=== PATIENT | female | born 1980 | race American Indian/Alaskan Native ===

== ENCOUNTER 2017-07-11 21:48 | Emergency (ER) | payer SELFPAY ==
[2017-07-11] MEDS ORDERED: Sodium Chloride 0.9% 1,000 ML IV ONE (22:06)
--- NOTE | 2017-07-11 22:06 | C.PDOC ---
History Of Present Illness Patient presents to ED with complaints of right flank pain associated with blood in urine that began yesterday. Patient describes pain as sharp and stabbing. She also states the pain got worse and radiates to the groin. Patient has Hx of kidney stones. Denies fever, chills, or any other physical complaints. Time Seen by Provider: 07/11/17 22:05 Chief Complaint (Nursing): Female Genitourinary History Per: Patient History/Exam Limitations: no limitations Onset/Duration Of Symptoms: Days (1) Current Symptoms Are (Timing): Still Present Severity: Moderate Pain Scale Rating Of: 5 Radiation Of Pain To:: Other (Groin) Quality Of Discomfort: Sharp, Stabbing Associated Symptoms: Urinary Symptoms. denies: Fever, Chills, Nausea, Vomiting Exacerbating Factors: None Alleviating Factors: None Recent travel outside of the [place]: No Abnormal Vaginal Bleeding: No Past Medical History Reviewed: Historical Data, Nursing Documentation, Vital Signs Vital Signs: Last Vital Signs Temp 98.0 F 07/11/17 21:51 Pulse 91 H 07/11/17 23:26 Resp 17 07/11/17 23:26 BP 115/78 07/11/17 23:26 Pulse Ox 96 07/12/17 00:46 - Medical History PMH: Kidney Stones Surgical History: Appendectomy, Cholecystectomy Family History: States: No Known Family Hx - Social History Hx Alcohol Use: No Hx Substance Use: No Review Of Systems Constitutional: Negative for: Fever, Chills Cardiovascular: Negative for: Chest Pain Respiratory: Negative for: Shortness of Breath Gastrointestinal: Positive for: Other (Right flank pain). Negative for: Nausea , Vomiting, Diarrhea Genitourinary: Positive for: Other (Blood in urine) Neurological: Negative for: Weakness, Numbness Psych: Negative for: Suicidal ideation Physical Exam - Physical Exam Appears: Non-toxic, No Acute Distress Skin: Warm, Dry Head: Normacephalic Eye(s): bilateral: Normal Inspection Oral Mucosa: Moist Neck: Supple Chest: Symmetrical, No Tenderness Cardiovascular: Rhythm Regular Respiratory: No Decreased Breath Sounds, No Rales, No Rhonchi, No Wheezing Gastrointestinal/Abdominal: No Bowel Sounds, Soft, No Tenderness, No Distention , No Guarding, No Rebound Back: No CVA Tenderness Neurological/Psych: Oriented x3, Normal Speech, Normal Cognition ED Course And Treatment - Laboratory Results Result Diagrams: 07/11/17 22:25 07/11/17 22:16 O2 Sat by Pulse Oximetry: 96 (RA) Pulse Ox Interpretation: Normal - CT Scan/US CT Abdomen & Pelvis Other Rad Studies (CT/US): Read By Radiologist, Radiology Report Reviewed CT/US Interpretation: EXAM: CT Abdomen and Pelvis Without Intravenous Contrast. EXAM DATE/TIME: 07/11/2017 10:37 PM. CLINICAL HISTORY: 36 years old , female; Pain; Abdominal pain; Additional info: Right flank pain, HX of kidney stones. TECHNIQUE: Axial computed tomography images of the abdomen and pelvis without intravenous contrast. All CT. scans at this facility use one or more dose reduction techniques, viz.: automated exposure control;. ma/kV adjustment per patient size (including targeted exams where dose is matched to indication; i.e. head); or iterative reconstruction technique. Coronal and sagittal reformatted images were created and reviewed. COMPARISON: There are no prior studies for comparison. FINDINGS: Lower thorax: Heart size is normal. There is atelectasis or scarring at the lung bases There is a. small hiatal hernia. ABDOMEN: Liver: Liver appears mildly enlarged. There is prominence of the left and caudate lobes. Gallbladder and bile ducts: Gallbladder is absent.There is prominence of the common duct. Pancreas: unremarkable. Spleen: unremarkable. [facility]. [facility]. Final Radiology Report [id number]. Name: RAFAEL FIERRO Age: 36Years F Date: 07/11/2017. SSN: [id number] : 1980. Study: CT ABDOMEN/PELVIS WO Requesting Physician: Marito Lopez. Images: [id number]. Addl Studies: Provided Clinical History: right flank pain, hx of kidney stones. CONFIDENTIALITY STATEMENT. This transmission is confidential and is intended to be a privileged communication. It is intended only for the use of the addressee. Access to this. message by anyone else is unauthorized. If you are not the intended recipient, any disclosure, copying, distribution or any action taken, or omitted to. be taken in reliance on it is prohibited and may be unlawful. If you received this communication in error, please notify us by telephone, so that return. of this document to us can be arranged. Page 2 of 2. Adrenals: unremarkable. Kidneys and ureters: Kidneys and ureters are unremarkable. There are no renal or ureteral stones. Stomach and bowel: Stomach is partially distended. Rotation is normal. There is no obstruction. Terminal ileum is unremarkable. There multiple clips at the base of the cecum and in the right lower. quadrant. There is moderate stool in the colon. Appendix: Surgically absent. PELVIS: Bladder: unremarkable. Reproductive: Uterus and adnexal structures are unremarkable. ABDOMEN and PELVIS: Intraperitoneal space: There is no significant fluid.There is no free air. Bones/joints: There are no acute osseous abnormalities. Soft tissues: There is a small fat containing umbilical hernia. Vasculature: Vascular structures are unremarkable. Lymph nodes: There is no pathologic adenopathy. IMPRESSION: No renal or ureteral stones or hydronephrosis; mild hepatomegaly; cholecystectomy. and appendectomy. Additional nonemergent findings as described above. Progress Note: Administered Morphine, Pepcid, Zofran and IV fluids. Ordered CT Abdomen&Pelvis, blood work and urinalysis. Reevaluation Time: 01:04 Reassessment Condition: Improved Disposition Counseled Patient/Family Regarding: Studies Performed, Diagnosis, Need For Followup - Disposition Disposition: HOME/ ROUTINE Disposition Time: 22:06 Condition: FAIR Additional Instructions: Please follow up with your own doctor and return if symptoms recur Instructions: Renal Colic (DC) Forms: [employer] (Romansh) - Clinical Impression Clinical Impression: Renal colic on right side - Scribe Statement The provider has reviewed the documentation as recorded by the Antionette Iglesias All medical record entries made by the Onielibaraseli were at my direction and personally dictated by me. I have reviewed the chart and agree that the record accurately reflects my personal performance of the history, physical exam, medical decision making, and the department course for this patient. I have also personally directed, reviewed, and agree with the discharge instructions and disposition.
[2017-07-11] MEDS ORDERED: Sodium Chloride 0.9% 1,000 ML ONE (22:15)
[2017-07-11 22:22] LABS: BASO # 0.1 K/uL (0.0-0.2); BASO % 1.1 % (0.0-2.0); EOS # 0.3 K/uL (0.0-0.7); EOS % 2.1 % (0.0-4.0); HEMOGLOBIN 13.1 g/dL (11.0-16.0); LYMPH # 3.9 K/uL (1.0-4.3); LYMPH % 32.6 % (20.0-40.0); MEAN CELL VOLUME 86.7 fL (81.0-99.0); MEAN CORPUSCULAR HEMOGLOBIN 28.7 pg (27.0-31.0); MEAN CORPUSCULAR HGB CONC 33.1 g/dL (33.0-37.0); MEAN PLATELET VOLUME 9.6 fL (7.2-11.7); MONO % 8.5 % (0.0-10.0); NEUT # 6.7 K/uL (1.8-7.0); NEUT % 55.7 % (50.0-75.0); RBC 4.54 Mil/uL (3.80-5.20); RED CELL DISTRIBUTION WIDTH 16.3 % (11.5-14.5)
[2017-07-11 22:31] LABS: INR 0.9; PROTHROMBIN TIME 9.7 SECONDS (9.7-12.2); SQUAMOUS EPITHIAL 4 /hpf (0-5); URINE BACTERIA RARE (<OCC); URINE BILIRUBIN NEGATIVE (NEGATIVE); URINE BLOOD 3+ (NEGATIVE); URINE CLARITY Clear (Clear); URINE COLOR Straw (YELLOW); URINE GLUCOSE (UA) NORMAL (Normal); URINE LEUKOCYTE ESTERASE NEG Leu/uL (Negative); URINE PROTEIN NEGATIVE (NEGATIVE); URINE UROBILINOGEN NORMAL mg/dL (0.2-1.0)
[2017-07-11 22:32] LABS: HCG,QUALITATIVE URINE NEGATIVE (NEGATIVE)
[2017-07-11 22:36] LABS: ALB/GLOB RATIO 1.2 (1.0-2.1); ALBUMIN 4.4 g/dL (3.5-5.0); ALT/SGPT 21 U/L (9-52); AST/SGOT 23 U/L (14-36); BLOOD UREA NITROGEN 14 mg/dL (7-17); CALCIUM 9.1 mg/dl (8.6-10.4); GFR AFRICAN-AMERICAN > 60; GFR NON-AFRICAN AMERICAN > 60; LIPASE 144 U/L (23-300)
[2017-07-11] MEDS ORDERED: Morphine 4 MG/ML VIAL ONE (22:51)
--- NOTE | 2017-07-12 00:41 | CT ---
EXAM: CT Abdomen and Pelvis Without Intravenous Contrast EXAM DATE/TIME: 07/11/2017 10:37 PM CLINICAL HISTORY: 36 years old, female; Pain; Abdominal pain; Additional info: Right flank pain, HX of kidney stones TECHNIQUE: Axial computed tomography images of the abdomen and pelvis without intravenous contrast. All CT scans at this facility use one or more dose reduction techniques, viz.: automated exposure control; ma/kV adjustment per patient size (including targeted exams where dose is matched to indication; i.e. head); or iterative reconstruction technique. Coronal and sagittal reformatted images were created and reviewed. COMPARISON: There are no prior studies for comparison. FINDINGS: Lower thorax: Heart size is normal. There is atelectasis or scarring at the lung bases There is a small hiatal hernia ABDOMEN: Liver: Liver appears mildly enlarged. There is prominence of the left and caudate lobes. Gallbladder and bile ducts: Gallbladder is absent.There is prominence of the common duct. Pancreas: unremarkable Spleen: unremarkable Adrenals: unremarkable Kidneys and ureters: Kidneys and ureters are unremarkable. There are no renal or ureteral stones. Stomach and bowel: Stomach is partially distended. Rotation is normal. There is no obstruction. Terminal ileum is unremarkable. There multiple clips at the base of the cecum and in the right lower quadrant. There is moderate stool in the colon. Appendix: Surgically absent PELVIS: Bladder: unremarkable Reproductive: Uterus and adnexal structures are unremarkable. ABDOMEN and PELVIS: Intraperitoneal space: There is no significant fluid.There is no free air. Bones/joints: There are no acute osseous abnormalities. Soft tissues: There is a small fat containing umbilical hernia. Vasculature: Vascular structures are unremarkable. Lymph nodes: There is no pathologic adenopathy. IMPRESSION: No renal or ureteral stones or hydronephrosis; mild hepatomegaly; cholecystectomy and appendectomy Additional nonemergent findings as described above.
[2017-07-12] MEDS ORDERED: Morphine 4 MG/ML VIAL ONE (00:44)
[2017-07-12 01:15] VITALS: BP 127/86; PULSE 75; RESP 18; TEMP 98.2; O2SAT 100
== END 2017-07-12 01:25 | disposition home or self-care (01) ==
LOC: C.ER 21:48
DX: N23 Unspecified renal colic (principal)
CPT/HCPCS: 74176; 80053; 81001; 83690; 84703; 85025; 85610; 85730; 96361; 96374; 96375; 96376; 99285; J2270; J2405; J7040